=== PATIENT | male | born 1950 | race Caucasian/White ===

== ENCOUNTER 2017-08-28 08:31 | Inpatient (IN) | payer MEDICARE, BC ==
[2017-08-26 13:22] VITALS: BMI 35.2
[~2017-08-28 08:31] MED LIST: DEXAMETHASONE SOD PHOSPHATE 10 MG/ML 1 ML VIAL IV ONE; HYDROmorphone 0.5 MG/0.5 ML SYRINGE IVP PRN; LACTATED RINGERS 1,000 ML IV SCH; ONDANSETRON 4 MG/2 ML VIAL IVP ONE; ceFAZolin 1,000 MG in DEXTROSE/WATER 1 50ML.BAG IV ONE
[2017-08-28 09:24] VITALS: TEMP 97.9
[2017-08-28] MEDS ORDERED: LIDOCAINE 1% 20 ML VIAL (10MG/ML) FOR IV START INTRADERMA ONE (09:30)
[2017-08-28] MEDS ORDERED: MIDAZOLAM 2 MG/2 ML VIAL ONE (11:43)
[2017-08-28] MEDS ORDERED: PROPOFOL 10 MG/ML 20 ML VIAL IV ONE (11:43)
[2017-08-28] MEDS ORDERED: fentaNYL (PF) 50 MCG/ML 2 ML AMP ONE (11:43)
[2017-08-28] MEDS ORDERED: LIDOCAINE 2%-EPI 1:100,000 20 ML VIAL SQ ONE ×2 (12:02)
--- NOTE | 2017-08-28 12:49 | P.OP ---
Date of Procedure: 08/28/17 Preoperative Diagnosis: Chronically infected sebaceous cyst of scrotum Postoperative Diagnosis: Chronically infected sebaceous cyst of scrotum Procedure(s) Performed: Excision of chronically infected scrotal cyst Anesthesia: MAC Surgeon: Danny Villatoro Estimated Blood Loss (ml): 3 Pathology: other (Scrotal cyst) Condition: stable Disposition: PACU Indications for Procedure: The patient is a 67-year-old male with a history of recurrent episodes of bloody , purulent drainage from a cyst in the posterior scrotum just left of the midline. Excision of the cyst is planned Description of Procedure: The patient was taken the operating suite and placed in the lithotomy position. The genitalia and perineum was prepped with Betadine soap and draped in a sterile fashion. 2% lidocaine with epinephrine was infiltrated around the area of the cyst which was just to the left of the midline in the posterior scrotum. The local anesthesia was supplemented with IV sedation. An elliptical skin incision was made approximately 2.5 cm in length and 1-1.5 cm in width. Using cautery the incision was carried down into the subcutaneous fat circumferentially. The cyst appeared to extend approximately 2 cm deep to the skin. The cyst was removed completely. Bleeding was controlled using cautery. Three fourths of the length of the skin incision was then closed using running 3-0 chromic. A quarter-inch iodoform gauze was then placed into the deep portion of the wound and the wound was dressed in a sterile fashion. Patient tolerated procedure well and left the operative room awake and in satisfactory condition blood loss was less than 3 mL he will be seen back in follow-up in 6 days. He will be treated with Augmentin for 5 days as well.
[2017-08-28 13:40] VITALS: BP 100/60
[2017-08-28] MEDS ORDERED: FUROSEMIDE 10 MG/ML 2 ML VIAL ONE (14:05)
[2017-08-28] MEDS ORDERED: SUCCINYLCHOLINE CHLORIDE 100 MG/5 ML SYR IV ONE (14:05)
[2017-08-28] MEDS ORDERED: ATROPINE SULFATE 0.4 MG/ML 1 ML VIAL ONE (14:05)
[2017-08-28] MEDS ORDERED: FUROSEMIDE 10 MG/ML 2 ML VIAL IV ONE (14:06)
--- NOTE | 2017-08-28 14:30 | XR ---
EXAMINATION TYPE: XR chest 1V portable DATE OF EXAM: 08/28/2017 COMPARISON: 02/06/2015 HISTORY: Post intubation TECHNIQUE: Single frontal view of the chest is obtained. FINDINGS: The waqas is difficult to visualize, however appears 1.1 cm caudal to the distal aspect o f the endotracheal tube. Endotracheal tube courses towards the right and could be retracted 1 cm for optimal placement. Cardiomediastinal silhouette is enlarged. No focal consolidation is seen. Blunting of the costophrenic angle on the left may relate to trace left pleural effusion and associated subse gmental atelectasis.. Right costophrenic angle is well aerated. No pulmonary vascular congestion or p neumothorax. IMPRESSION: 1. Endotracheal tube is oriented towards the right mainstem bronchus and somewhat low lying terminati ng approximately 1.1 cm in the waqas. Retraction of 1 cm recommended for optimal placement. 2. Probable trace left pleural effusion and left basilar atelectasis.
[2017-08-28] MEDS ORDERED: NOREPINEPHRIN 4 MG-0.9% NS PMX 4 MG/250 ML ML IV ONE (15:11)
[2017-08-28] MEDS ORDERED: PROPOFOL 1,000 MG/100 ML VIAL IV ONE (15:13)
[2017-08-28 15:25] VITALS: RESP 14
--- NOTE | 2017-08-28 16:21 | P.CRDCN ---
History of Present Illness Consult date: 08/28/17 History of present illness: This is a 67-year-old gentleman who sustained a cardiac arrest today after surgery. The patient underwent a scrotal abscess surgery earlier today which was performed under local anesthesia with adjunctive use of propofol. The surgery itself went very well and after surgery the patient woke up and he was going to be discharged home when he suddenly collapsed and was hypotensive. Subsequently the patient was intubated and placed on ventilator. He was found to be in pulseless electrical activity and lost his pulses. CPR was initiated per protocol for 15 minutes and the patient after that got the pulse and blood pressure after 5 mg of epinephrine separately. The patient is known to have severe primary pulmonary hypertension and he is follows at the [facility]. The patient also does see Dr. Malone in our office on regular basis and he underwent a heart catheterization back in 2012 which revealed mild nonobstructive coronary artery disease. The pulmonary artery systolic pressure at that point was 65 mmHg. A bedside echocardiogram was performed right after the CPR and it did reveal severe lead enlarged right ventricle with severe tricuspid regurgitation. The shape of the left ventricle was also seen. Currently the patient is intubated but he is hemodynamically stable. He is in process to be transferred to the intensive care unit. We will obtain a basic blood work including electrolytes. Obviously continue ventilator support. ICU admission. Obtain the previous medical records from the office. Please note that the patient prognosis is very poor. Past Medical History Past Medical History: GERD/Reflux, Hyperlipidemia, Osteoarthritis (OA), Pneumonia, Thyroid Disorder Additional Past Medical History / Comment(s): Pulmonary HTN, on home oxygen at 3.5 liters at bedtime, History of Any Multi-Drug Resistant Organisms: None Reported Past Surgical History: Heart Catheterization, Joint Replacement, Orthopedic Surgery Additional Past Surgical History / Comment(s): TOTAL left knee replaced, TOTAL RIGHT KNEE Past Anesthesia/Blood Transfusion Reactions: No Reported Reaction Smoking Status: Former smoker - Past Family History Mother Family Medical History: No Reported History Father Family Medical History: Coronary Artery Disease (CAD), Myocardial Infarction (SC ) Medications and Allergies Home Medications Medication Instructions Recorded Confirmed Type Sildenafil [Revatio] 20 mg PO TID 02/03/15 08/28/17 History Treprostinil/Nebulizer/Accesor 1.74 mg INHALATION RT-QID 02/03/15 08/28/17 History [Tyvaso Institutional Start Kit] Bosentan [Tracleer] 125 mg PO BID 02/07/15 08/28/17 History Levothyroxine Sodium [Synthroid] 75 mcg PO DAILY 02/07/15 08/28/17 History Furosemide [Lasix] 40 mg PO BID PRN 08/26/17 08/28/17 History Hydrocodone/Acetaminophen [[place] 1 - 2 tab PO Q6HR PRN 08/26/17 08/28/17 History 5-325] Amoxicillin/Potassium Clav 1 tab PO Q12HR #10 tab 08/28/17 Rx [Augmentin 500-125 Tablet] Allergies Allergy/AdvReac Type Severity Reaction Status Date / Time No Known Allergies Allergy Verified 02/07/15 11:47 Physical Exam Vitals: Vital Signs Temp Pulse Pulse Resp BP Pulse Ox 08/28/17 15:20 41 L 14 62 L 08/28/17 13:20 93 16 100/60 84 L 08/28/17 13:05 94 16 97/66 86 L 08/28/17 12:50 87 16 101/67 81 L 08/28/17 09:21 97.9 F 69 22 118/66 99 Intake and Output 08/28/17 08/28/17 08/28/17 06:59 14:59 22:59 Intake Total 900 Output Total 3 Balance 897 Intake: IV 900 Output: Estimated Blood Loss 3 ABP, PAP, CO, CI - Last 8 Hours Arterial Blood Pressure 30/20 - Constitutional General appearance: mild distress - Respiratory Respiratory: bilateral: CTA - Cardiovascular Rhythm: regular Heart sounds: normal: S1, S2 Results Current Medications Generic Name Dose Route Start Last Admin Trade Name Freq PRN Reason Stop Dose Admin Hydromorphone HCl 0.5 mg 08/28/17 05:58 Dilaudid Syringe IVP 08/29/17 05:59 Q5M PRN Pain Control Lactated Ringer's 1,000 mls @ 20 mls/hr 08/28/17 05:58 08/28/17 09:43 Lactated Ringers IV 950 mls .Q24H VISHAL Administration Intake and Output 08/28/17 08/28/17 08/28/17 06:59 14:59 22:59 Intake Total 900 Output Total 3 Balance 897 Intake: IV 900 Output: Estimated Blood Loss 3 Assessment and Plan Assessment: This is a 67-year-old gentleman with known severe primary pulmonary hypertension who had a cardiac arrest after noncardiac surgery. Currently the patient is in acute respiratory failure. CPR was performed for 15 minutes. The patient is a full code. The echocardiogram was performed bedside. The prognosis is very poor overall. I will obtain a 12 please EKG. Rule out any anoxic encephalopathy.
[2017-08-28 17:05] VITALS: PULSE 0
[2017-08-28] MEDS ORDERED: EPINEPHrine 10 ML SYRINGE (0.1 MG/ML) ONE (19:00)
[2017-08-28] MEDS ORDERED: SODIUM CHLORIDE 0.9% 250 ML BAG ONE (19:00)
[2017-08-28] MEDS ORDERED: NOREPINEPHRINE 1 MG/ML 4 ML VIAL IV ONE (19:00)
[2017-08-28] MEDS ORDERED: ATROPINE SULFATE 0.1 MG/ML 10ML SYRINGE ONE (19:03)
--- NOTE | 2017-08-29 12:57 | ECHOF ---
Referral Reason:POST CARDIAC ARREST MEASUREMENTS -------- HEIGHT: 0.0 cm WEIGHT: 0.0 kg BP: RVIDd: 5.1 cm (< 3.3) IVSd: 1.1 cm (0.6 - 1.1) LVIDd: 2.8 cm (3.9 - 5.3) LVPWd: 0.5 cm (0.6 - 1.1) IVSs: 0.9 cm LVIDs: 2.7 cm LVPWs: 0.9 cm RAP: 5.00 mmHg RVSP: 86.45 mmHg FINDINGS -------- Resting tachycardia (HR>100bpm). Pt Cardiac Arrest. This was a technically adequate study. The left ventricular size is normal. Overall left ventricular systolic function is normal with, an EF between 55 - 60 %. The right ventricle is severely enlarged. The right ventricular systolic function is severely impai red. The right ventricular septal wall is flattened in diastole and systole which is consistent wi th right ventricular volume and pressure overload. The left atrial size is normal. The right atrium is markedly enlarged. The aortic valve is trileaflet, and appears structurally normal. No aortic stenosis or regurgitation. The mitral valve is normal. Mild mitral regurgitation is present. Severe tricuspid regurgitation present. There is severe pulmonary hypertension. The right ventric ular systolic pressure, as measured by Doppler, is 86.45mmHg. The pulmonic valve was not well visualized. There is no pericardial effusion. CONCLUSIONS -------- 1. Resting tachycardia (HR>100bpm). 2. Pt Cardiac Arrest. 3. This was a technically adequate study. 4. The left ventricular size is normal. 5. Overall left ventricular systolic function is normal with, an EF between 55 - 60 %. 6. The right ventricle is severely enlarged. 7. The right ventricular systolic function is severely impaired. 8. The right ventricular septal wall is flattened in diastole and systole which is consistent with r ight ventricular volume and pressure overload. 9. The left atrial size is normal. 10. The right atrium is markedly enlarged. 11. The aortic valve is trileaflet, and appears structurally normal. No aortic stenosis or regurgitat ion. 12. Mild mitral regurgitation is present. 13. Severe tricuspid regurgitation present. 14. There is severe pulmonary hypertension. 15. The right ventricular systolic pressure, as measured by Doppler, is 86.45mmHg. 16. The pulmonic valve was not well visualized. 17. There is no pericardial effusion. HOSPITALITY JOB TITLES: Melani Chahal RDCS
--- NOTE | 2017-09-04 11:28 | P.PN ---
Progress Note - Text Addendum to the chart of 08/28/2017. Patient was also given Lasix 20 mg IV at approximately 1420. This medication is not listed in the chart.
== END 2017-08-28 15:40 | disposition expired | DRG 208 ==
LOC: OR 08:31 → 6ICU 14:17
PROVIDERS: ADMIT Urology; ATTEND Urology
PROC: 0VB50ZZ Excision of Scrotum, Open Approach (ICD-10-PCS; 2017-08-28)
PROC: 0BH18EZ Insertion of Endotracheal Airway into Trachea, Via Natural or Artificial Opening Endoscopic (ICD-10-PCS; principal; 2017-08-28 10:15)
PROC: 5A1935Z Respiratory Ventilation, Less than 24 Consecutive Hours (ICD-10-PCS; principal; 2017-08-28 10:15)
DX: J96.20 Acute and chronic respiratory failure, unspecified whether with hypoxia or hypercapnia (principal); I46.9 Cardiac arrest, cause unspecified; I27.0 Primary pulmonary hypertension; Z99.81 Dependence on supplemental oxygen; I07.1 Rheumatic tricuspid insufficiency; I50.9 Heart failure, unspecified; I25.10 Atherosclerotic heart disease of native coronary artery without angina pectoris; K21.9 Gastro-esophageal reflux disease without esophagitis; E78.00 Pure hypercholesterolemia, unspecified; J44.9 Chronic obstructive pulmonary disease, unspecified; G47.33 Obstructive sleep apnea (adult) (pediatric); M19.90 Unspecified osteoarthritis, unspecified site; L72.3 Sebaceous cyst; L08.9 Local infection of the skin and subcutaneous tissue, unspecified; Z82.49 Family history of ischemic heart disease and other diseases of the circulatory system; Z80.42 Family history of malignant neoplasm of prostate; Z87.891 Personal history of nicotine dependence; Z79.899 Other long term (current) drug therapy; Z88.8 Allergy status to other drugs, medicaments and biological substances; Z86.010 Personal history of colon polyps
CPT/HCPCS: 71010; 87070; 87075; 87205; 88304; 93005; 93306; 94002; 94770